=== PATIENT | male | born 1990 | race Caucasian/White ===

== ENCOUNTER 2017-02-06 13:15 | Observation (INO) ==
--- NOTE | 2017-02-06 16:15 | Orthopedic Consult Note ---
Date of Encounter: 02/06/17 Time of Encounter: 16:14 History of Present Illness HPI: Mr. 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 He is seen at the [facility] emergency department earlier today sustained an injury to his left hand when it got pulled into [employer]. Past Med Surg Social Fam HX - Past Medical History Medical history: no medical history Psychiatric history: no psych history - Social History Smoking Status: Current every day smoker Smokeless Tobacco Status: Yes Alcohol use: occasionally Drug use: none Medications and Allergies No Known Home Drugs 02/06/17 [History] 3 Allergy/AdvReac Type Severity Reaction Status Date / Time No Known Allergies Allergy Verified 02/06/17 11:01 All Systems Reviewed: A 10-system review of systems was performed and is negative for pertinent findings except as documented above in the HPI. Physical Exam - Constitutional Vitals: Temp Pulse Resp BP Pulse Ox 98.1 F 50 16 131/77 100 02/06/17 15:05 02/06/17 15:05 02/06/17 15:05 02/06/17 15:05 02/06/17 15:05 Results - Labs Labs: All other labs normal. Consult Discharge Plan - Plan Referrals: NONE,PCP [Primary Care Provider] -
--- NOTE | 2017-02-06 16:23 | Orthopedic History & Physical ---
Date of Encounter: 02/06/17 Time of Encounter: 16:18 Assessment and Plan (1) Laceration Current visit: No Status: Acute Left transverse hand laceration at the palmar distal flexion crease. This is a deep laceration and I discussed treatment options and my recommendation given this and the likely gross contamination was to surgically explore the wound for debridement and irrigation as well as to evaluate for any deeper injuries. The risks discussed included but were not limited to stiffness, bleeding, infection , blood clots, damage to neurovascular structures, tendons, ligaments, and bone. Also discussed was the risk of continued symptoms and possible need for further procedures. I did discuss the anesthesia risks including stroke, heart attack, and . I did discuss the reasonable, foreseeable postoperative course with the patient. I did explain this to the patient in simple terms and he did wish to proceed and consent will be obtained. History of Present Illness HPI: Mr. Mera is a 26 year old [id number] male who works in a [employer]. He was seen at the [facility] emergency department earlier today after he sustained an injury to his left hand when it got pulled into [employer]. He was seen by the emergency department physician and his wound was irrigated out and he received a dose of antibiotics. There is concern for gross contamination in the wound with grease as well as a possible tendon injury. The patient was directly transferred to our [place] for surgical debridement, irrigation, and exploration. The patient complains of pain isolated to the left volar and dorsal hand which is a 4 out of 10 and is described as sharp and aching. It is worse with movement of the digits and better with rest and with elevation. He does feel that the fingertips have slightly altered sensation from the ring to the index. He complains this is an isolated injury and denies any other trauma. No other numbness, tingling, or any other associated signs or symptoms. No other modifying factors. Past Med Surg Social Fam HX - Past Medical History Medical history: no medical history Psychiatric history: no psych history - Social History Smoking Status: Current every day smoker Smokeless Tobacco Status: Yes Alcohol use: occasionally Drug use: none Medications and Allergies No Known Home Drugs 02/06/17 [History] 3 Allergy/AdvReac Type Severity Reaction Status Date / Time No Known Allergies Allergy Verified 02/06/17 11:01 All Systems Reviewed: Constitutional and musculoskeletal systems were reviewed and are negative unless otherwise stated in history of present illness. Physical Exam - Constitutional Vitals: Temp Pulse Resp BP Pulse Ox 98.1 F 50 16 131/77 100 02/06/17 15:05 02/06/17 15:05 02/06/17 15:05 02/06/17 15:05 02/06/17 15:05 CONSTITUTIONAL -Vitals reviewed -The patient is well developed, well nourished, well groomed PSYCHIATRIC -Fully alert and oriented x 3 -Pleasant mood LEFT UPPER EXTREMITY Inspection shows a 6 cm transverse laceration at the distal volar palmar flexion crease centered over the ring finger. The ends of this laceration curved distally to make a slightly U-shaped injury. There is no bleeding. No other deep lacerations. Mild dorsal swelling of the hand without dorsal laceration. Minimal dorsal abrasions. The cascade of the digits is normal. The hand is quite dirty throughout. Diffuse tenderness throughout the palmar and dorsal hand. No tenderness at the wrist or proximally. Full active and passive motion of the elbow. He is able to flex and extend the wrist of this does cause pain at the site of the injury. He can gently flex and extend the digits with significant limitation due to pain in the mild swelling. He can oppose the thumb well. I do demonstrate independent FDP and FDS function to all of the digits. The FPL is intact. All of the fingertips are grossly sensate though he says the sensation is slightly altered at the tips of all the digits including the index. Brisk capillary refill noted to all digits and the radial artery pulses 2+. No injuries proximal to the transverse laceration. Diagnostic Imaging: I did personally review and interpret x-rays of the left hand which show that the bones are intact without fracture. Results - Labs Labs: All other labs normal.
[2017-02-06] MEDS ORDERED: Lidocaine -MPF 2% 2 ML VIAL ONE (16:29)
[2017-02-06] MEDS ORDERED: Dexamethasone 4 MG/ML VIAL ONE (16:29)
[2017-02-06] MEDS ORDERED: *HR* FentaNYL (PF) 100 MCG/2 ML VIAL ONE (16:29)
[2017-02-06] MEDS ORDERED: *HR* Midazolam HCl 2 MG/2 ML VIAL ONE (16:29)
[2017-02-06] MEDS ORDERED: *HR* Propofol 200 MG/20 ML VIAL IVP ONE (16:29)
[2017-02-06] MEDS ORDERED: Ondansetron 4 MG/2 ML VIAL ONE (16:29)
[2017-02-06] MEDS ORDERED: Ondansetron 4 MG/2 ML VIAL IVP ONE (16:33)
[2017-02-06] MEDS ORDERED: *HR* Promethazine 25 MG/ML VIAL IVP PRN (16:33)
[2017-02-06] MEDS ORDERED: *HR* Labetalol 20 MG/4 ML SYRINGE IVP PRN (16:33)
[2017-02-06] MEDS ORDERED: Dexamethasone 4 MG/ML VIAL IVP ONE (16:33)
[2017-02-06] MEDS ORDERED: Ketorolac 15 MG/ML VIAL IVP ONE (16:33)
--- NOTE | 2017-02-06 16:37 | Anesthesia Evaluation PreOp ---
Date of Encounter: 02/06/17 Time of Encounter: 16:32 - Past History Planned Operation: I & D Left Hand Cardiac History: Denies any Significant Hx Pulmonary History: Smoker (10 years) VICE CHAIR History: Denies Any Significant HX Other Medical History: Denies Any Significant HX Anesthesia History: Past Anesthesia (no prior surgery) Alcohol Use: occasionally Drug use: none Medications and Allergies No Known Home Drugs 02/06/17 [History] 3 Allergy/AdvReac Type Severity Reaction Status Date / Time No Known Allergies Allergy Verified 02/06/17 11:01 - Meds/Allergy Pre-op Review Medications Reviewed: Yes Allergies Reviewed: Yes Beta Blockers on Current Med List: No Anesthesia Results - Labs Laboratory Tests 02/06/17 02/06/17 02/06/17 11:46 11:46 11:46 WBC 6.6 Hgb 13.1 Hct 37.7 Plt Count 164 PT 11.3 INR 1.1 APTT 27.8 Sodium 142 Potassium 3.7 BUN 10 Creatinine 0.85 Anesthesia Exam Vital Signs/O2 Sat, Most Current Temp Pulse Resp BP Pulse Ox 98.1 F 50 16 131/77 100 02/06/17 15:05 02/06/17 15:05 02/06/17 15:05 02/06/17 15:05 02/06/17 15:05 Height: 6'3'' Weight: 173 lbs NPO (# of Hours): 8 Pain Scale: 0 Pain Scale Used: Numeric (1 - 10) - HEENT Pupil (Motor): EOMI Mallampati: II Teeth: Normal Oral Opening: Greater than 3 - VICE CHAIR LOC: Oriented VICE CHAIR Motor: Normal RUE, Normal LUE, Normal RLE, Normal LLE, Normal Face VICE CHAIR Sensory: Normal: RUE, LUE, RLE, LLE, Face - Cardiac Rhythm: Regular Murmur: None - Pulmonary Breath Sounds: bilateral Clear Respiratory Effort: Symmetrical Anesthesia Assess/Plan ASA Score: 2 Modified Elver Scale for Level of Consciousness: Cooperative, oriented, and tranquil Anesthetic Plan: General Monitoring Plan: Standard Monitors Recovery Plan: PACU
[2017-02-06] MEDS ORDERED: Bupivacaine/EPI 1:200k 0.5%PF 10 ML VIAL ONE (16:38)
[2017-02-06] MEDS ORDERED: Albuterol 2.5 MG/3 ML NEBULIZER IH ONE (16:38)
[2017-02-06] MEDS ORDERED: Lidocaine 1% 20 ML MDV ONE (16:38)
[2017-02-06] MEDS ORDERED: Lidocaine/EPI 1:200k 1% PF 10 ML VIAL ONE (16:39)
[2017-02-06] MEDS ORDERED: Albuterol 2.5 MG/3 ML NEBULIZER ONE (16:41)
[2017-02-06] MEDS: *HR* HYDROmorphone (PF) 1 MG/ML SYRINGE IVP PRN ×2 (18:09→18:18)
--- NOTE | 2017-02-06 18:11 | Discharge Summary ---
Outpatient Proc Discharge Plan - Plan Additional Instructions: DISCHARGE INSTRUCTIONS Dr. Duff DISCHARGE DIAGNOSIS/PROCEDURE Left hand exploration with irrigation and debridement and wound closure PAIN AND SWELLING: The goal of pain medication is to reduce your pain and make you more comfortable. Pain medication may not completely relieve all discomfort. Control of swelling is an important part of pain control. To control swelling and pain: 1. Use a pillow to elevate the hand 10 to 14 inches above the heart level. 2. If your splint is positioned so that one or more of your fingers is free, then we encourage gentle movement of those fingers. If the splint blocks your motion, then we ask that you avoid motion of these fingers or hand. If the splint does not include the elbow, then we encourage you to bend and straighten your elbow 4 to 5 times per day to prevent stiffness. 3. Use ice packs over the affected area (on the soft side of the dressings is preferred - if there is one) for 10 minute intervals every hour while the hand is elevated. Be careful, however, to keep the dressing dry! 4. If you were given a sling, then wear the sling on when walking around for long periods of time. Otherwise, elevated as directed above. Continued use of the sling does not provide proper elevation of the extremity to prevent swelling. 5. The anesthesiologist may have given you a nerve block (an injection near your neck or shoulder) to numb your hand and arm. This is to help control your pain. Therefore, it is normal to experience some numbness and tingling in your arm and fingers up to approximately 18 hours after surgery. Your surgeon may have given a nerve block directly at the site of surgery which may also cause some numbness and tingling to the affected area. ACTIVITY: Avoid aggressive activities with the left upper extremity. WOUND CARE: Keep the wound clean, dry, and covered. The purpose of the dressing is to keep the surgical site protected and to promote healing. If you have a splint or a cast, it is designed to also help protect the surgical site. You may take a shower or bath with your dressing, splint, or cast in place, but you must keep it dry. One common way to do this is to place a bag over the area and seal with tape. If your dressing, splint, or cast becomes soaked, then phone our office as soon as possible. Unless otherwise instructed, do not remove your dressing or splint. There may be some bloody spotting on the dressing initially , and this is normal. Excessive bleeding that soaks the dressing must be reported to us. DRIVING: Do not drive while taking narcotic pain medications. DIET: Begin with clear liquids, and then increase your diet as you feel comfortable. MEDICATIONS: Pain: [place] Antibiotics: Keflex Your prescribed pain medication contains Tylenol. You must be careful not to exceed 4,000 mg (4 g) of Tylenol (or generic equivalent), from all sources, within a single 24-hour period. Gradually wean to Tylenol (or generic equivalent) for pain. Over the counter ibuprofen can be taken as directed in addition to your prescribed pain medication unless otherwise stated by your doctor. DO NOT TAKE IBUPROFEN IF YOU HAVE A HISTORY OF STOMACH ULCERS OR ARE TAKING BLOOD THINNERS LIKE COUMADIN OR PLAVIX. FOLLOW-UP Follow-up with Dr. Duff at the office 3 days from the surgery date for a post operative evaluation. Call the office at [phone] to schedule or confirm your appointment. WHEN TO CALL THE DOCTOR OR WHEN TO SEEK CARE BEFORE YOUR APPOINTMENT 1. Excess swelling or increased numbness not made better by elevating the hand and moving the fingers. 2. Uncontrolled pain. 3. A color change in your hand or fingers. 4. Worsening redness or drainage. 5. Fevers over 100.5 degrees F or 38.1 degrees C. 6. Any symptoms that bring concern to you. Prescriptions: Cephalexin [Keflex] 500 mg PO Q6H #20 capsule HYDROcodone/Acet 7.5/325 mg [[place] 7.5-325 mg] 1 tab PO Q6H PRN #25 tablet PRN Reason: Pain Home Medications: Cephalexin [Keflex] 500 mg PO Q6H #20 capsule 02/06/17 [Rx] HYDROcodone/Acet 7.5/325 mg [[place] 7.5-325 mg] 1 tab PO Q6H PRN #25 tablet 02/06 [Rx] No Known Home Drugs 02/06/17 [History]
--- NOTE | 2017-02-06 18:38 | Anesthesia Evaluation Post Op ---
Date of Encounter: 02/06/17 Time of Encounter: 18:37 - Vital Signs Vital Signs: Vital Signs/O2 Sat, Most Current Temp Pulse Resp BP Pulse Ox 99 F 62 14 146/97 100 02/06/17 18:29 02/06/17 18:29 02/06/17 18:29 02/06/17 18:19 02/06/17 18:29 - Lungs Lungs: Clear Ascult./Percussion - Airway Airway: Non-obstructed - Cardiovascular Regular Rate - Mental Status Mental Status: Alert & Oriented, Answers Appropriately - Pain Pain Scale: 3 Pain Scale used: Numeric (1 - 10) - Nausea Vomiting Nausea Vomiting: Not Present - Hydration Hydration: Tolerates oral liquids, Has not voided - Discharge PostOp Status: Transfer Patient to floor
[2017-02-06 18:44] VITALS: BP 140/79
--- NOTE | 2017-02-06 20:23 | Orthopedic Operative Note ---
Date of procedure: 02/06/17 Procedure: OPERATIVE REPORT DATE OF PROCEDURE: 02/06/2017 SURGEON: Ezio Duff MD ADVERTISING STRATEGIST(S): There were no assistants PREOPERATIVE DIAGNOSIS: Left deep hand laceration POSTOPERATIVE DIAGNOSIS: Left deep hand laceration, intact flexor tendons and neurovascular bundles. PROCEDURE: Left hand exploration with debridement, irrigation, and primary wound closure. ANESTHESIA: Gen. anesthesia PREOPERATIVE ANTIBIOTICS: 1 gram of Ancef from ED, and 1 gram of Ancef preoperatively. ESTIMATED BLOOD LOSS: 2 milliliters TOURNIQUET TIME: 16 minutes at 250 mmHg SPECIMENS: There were no specimens IMPLANTS: There were no implants LOCAL INJECTION: 0.5% bupivacaine with 1:200,000 epinephrine; 10 mL used in total PREOPERATIVE NOTE AND INDICATIONS: Nabil is a 26-year-old male who sustained a deep left hand laceration. There is surrounding dirt and grease on his left hand and concern for deeper contamination. The recommendation was for exploration of the left hand with debridement and irrigation and repair of deeper structures as needed such as tendons or neurovascular bundles. The surgical plan was discussed with the patient. The risks, benefits, alternatives, and potential complications of this procedure were discussed with the patient including injury to veins, arteries, nerves, tendons, ligaments, and bone. Also discussed were the risks of infection, bleeding, pain, blood clots, the possible need for a blood transfusion, the possible need for further procedures, heart attack, stroke, and . All of this was explained in simple terms, and the patient verbalized understanding and wished to proceed. Consent was given to proceed with surgery. PROCEDURE: The patient was seen in the preoperative holding area where the identify and the consent were confirmed. The left hand was marked. Final questions were answered. The patient was brought back to the operating room and placed supine on the operating room table. A huddle was performed with the patient and all vital surgical team members confirming patient identity, the correct procedure, and the correct operative site. General anesthesia was administered. The left upper extremity was prepped and draped in the usual sterile fashion. A surgical time out was performed immediately preceding the incision with all personnel in the operating room to confirm patient identity, the correct operative site and extremity, correct radiographic studies, availability of appropriate surgical equipment, and agreement on the planned procedure. The limb was exsanguinated and the tourniquet was inflated. The wound was evaluated and spread open bluntly with scissors. The depth of the laceration was noted to be just deeper and the palmar fascia. The width of the laceration and zone of injury extended from the small finger flexor tendon sheath to the long finger flexor tendon sheath. Beginning radially the long finger flexor tendon sheath was evaluated and noted to be completely intact. The neurovascular bundle between the long finger and ring finger was carefully dissected out and noted to be completely intact. The flexor tendon sheath of the ring finger was dissected and noted to be completely intact. The neurovascular bundle between the ring finger and small finger was dissected carefully and found to be completely intact. The flexor tendon sheath of the small finger was found to be completely intact. The wound was copiously irrigated and there is noted to be a minimal amount of deep contamination with dirt. No foreign bodies were identified. After copiously irrigating the wound the tourniquet was deflated. There is no significant bleeding. The wound was loosely closed with 4 simple stitches. A sterile dressing with a forearm based volar splint was applied. The instrument, sponge, and needle counts were correct after wound closure. POST OPERATIVE PLAN: Weight Bearing: Avoid weightbearing to the left upper extremity. DVT Prophylaxis: Ambulation Activity: Avoid aggressive activities with the left upper extremity. Wound Care: Keep the dressing clean, dry, and covered. Pain Control: [place] Perioperative antibiotic prophylaxis: Keflex 500 mg PO QID x 5 days Follow Up: 3 days
== END 2017-02-06 20:50 | disposition home or self-care (01) ==
LOC: 3ANU → 3NENU 17:14 → 3ANU 17:53
PROVIDERS: ADMIT Orthopaedic Surgery Hand Surgery; ATTEND Orthopaedic Surgery Hand Surgery